=== PATIENT | female | born 1965 | race American Indian/Alaskan Native ===

== ENCOUNTER 2017-01-22 16:17 | Emergency (ER) | payer MEDICAID ==
[~2017-01-22] VITALS: Ht 162.6 cm; Wt 72.3 kg
[~2017-01-22 16:17] MED LIST: CYCL-259 PO; IBUP400T PO; LISI-170 PO
[2017-01-22] MEDS ORDERED: OXYcodone/APAP 5/325MG TABLET PO ONE (17:00)
[2017-01-22] MEDS ORDERED: KETOROLAC 30 MG/1 ML ONE (17:48)
[2017-01-22] MEDS ORDERED: KETOROLAC 30 MG/1 ML IM ONE (18:00)
[2017-01-22 18:18] VITALS: BP 155/91
== END 2017-01-22 18:36 | disposition home or self-care (01) ==
LOC: ED 18:03
DX: S52.515A Nondisplaced fracture of left radial styloid process, initial encounter for closed fracture (principal); W01.0XXA Fall on same level from slipping, tripping and stumbling without subsequent striking against object, initial encounter; Y93.89 Activity, other specified; Y92.89 Other specified places as the place of occurrence of the external cause; Y99.8 Other external cause status
CPT/HCPCS: 29125; 73110; 96372; 99284; J1885

== ENCOUNTER 2017-02-23 06:48 | Emergency (ER) | payer MEDICAID ==
[~2017-02-23] VITALS: Ht 162.6 cm; Wt 69.0 kg
[2017-02-23 06:59] VITALS: BP 206/114
== END 2017-02-23 08:20 | disposition home or self-care (01) ==
LOC: ED 08:14
DX: S62.665D Nondisplaced fracture of distal phalanx of left ring finger, subsequent encounter for fracture with routine healing (principal); S52.92XD Unspecified fracture of left forearm, subsequent encounter for closed fracture with routine healing; I10 Essential (primary) hypertension; Z76.0 Encounter for issue of repeat prescription

== ENCOUNTER 2017-05-20 19:38 | Emergency (ER) | payer MEDICAID ==
[2017-05-20] MEDS ORDERED: LISINOPRIL 20 MG TABLET ONE (19:56)
[2017-05-20] MEDS ORDERED: LISINOPRIL 20 MG TABLET PO ONE (20:00)
[2017-05-20] MEDS ORDERED: PLEASE ENTER HEIGHT AND WEIGHT MC SCH (20:00)
[2017-05-20 21:42] VITALS: BP 155/81
== END 2017-05-20 21:44 | disposition home or self-care (01) ==
LOC: ED 21:38
DX: F10.120 Alcohol abuse with intoxication, uncomplicated (principal); I10 Essential (primary) hypertension; M54.5 Low back pain
CPT/HCPCS: 72110; 72220; 99284

== ENCOUNTER 2017-09-09 13:26 | Emergency (ER) | payer MEDICAID ==
[~2017-09-09] VITALS: Ht 170.2 cm; Wt 70.0 kg
[~2017-09-09 13:26] MED LIST changes: +IBUP-1221 PO; -IBUP400T PO
[2017-09-09] MEDS ORDERED: THIAMINE 100MG TABLET PO ONE (13:30)
[2017-09-09 13:34] VITALS: BP 153/92
[2017-09-09] MEDS ORDERED: THIAMINE 100MG TABLET ONE (13:50)
== END 2017-09-09 13:55 | disposition left against medical advice (07) ==
LOC: ED 13:30
DX: F10.120 Alcohol abuse with intoxication, uncomplicated (principal); I10 Essential (primary) hypertension
CPT/HCPCS: 99283

== ENCOUNTER 2017-10-28 18:42 | Emergency (ER) | payer MEDICAID ==
[~2017-10-28] VITALS: Ht 162.6 cm; Wt 72.0 kg
[2017-10-28 18:44] VITALS: BP 192/98
[2017-10-28] MEDS ORDERED: ACETAMINOPHEN 325 MG TABLET ONE (19:11)
[2017-10-28] MEDS ORDERED: IBUPROFEN 200 MG TABLET ONE (19:11)
[2017-10-28] MEDS ORDERED: ACETAMINOPHEN 325 MG TABLET PO ONE (19:30)
[2017-10-28] MEDS ORDERED: IBUPROFEN 200 MG TABLET PO ONE (19:30)
== END 2017-10-28 20:16 | disposition home or self-care (01) ==
LOC: ED 19:45
DX: K08.89 Other specified disorders of teeth and supporting structures (principal); I10 Essential (primary) hypertension; F17.200 Nicotine dependence, unspecified, uncomplicated
CPT/HCPCS: 99283

== ENCOUNTER 2018-07-12 05:09 | Emergency (ER) | payer MEDICAID ==
[~2018-07-12] VITALS: Ht 162.6 cm; Wt 71.7 kg
[2018-07-12 06:30] VITALS: BP 187/111
== END 2018-07-12 06:32 | disposition home or self-care (01) ==
LOC: ED 06:26
DX: J30.2 Other seasonal allergic rhinitis (principal); I10 Essential (primary) hypertension
CPT/HCPCS: 71045; 93005; 99284

== ENCOUNTER 2018-10-15 17:13 | Emergency (ER) | payer MEDICAID ==
[~2018-10-15] VITALS: Ht 162.6 cm; Wt 66.0 kg
[2018-10-15] MEDS ORDERED: FOLIC ACID 1 MG TABLET PO ONE (17:30)
--- NOTE | 2018-10-15 17:30 | NUR ---
Pt BIB EMS from street for "being to drunk for long-term" per EMS. Pt was found sleeping on sidewalk. Smells of ETOH and when asked how much she drank states "too much". Pt alert to name only. Pt using excessive profanity, intermittently crying, cussing and laughing. BG 88 by EMS
[2018-10-15] MEDS ORDERED: THIAMINE 100MG TABLET PO ONE (18:00)
[2018-10-15] MEDS ORDERED: MAGNESIUM OXIDE 400 MG TABLET ONE (18:15)
--- NOTE | 2018-10-15 19:02 | NUR ---
Report to Andrew DANIELS. Pt remains in bed, NAD.
--- NOTE | 2018-10-15 19:12 | NUR ---
PT BEDSIDE REPORT FROM BARTOLOME RN. THIS RN TO ASSUME CARE OF PT. PT SLEEPING COMFORTABLY ON GURNEY. RR EVEN AND UNLABORED. PT REFUSING MEDICATIONS AT THIS TIME. VSS. CALL LIGHT WITHIN REACH.
[2018-10-15 19:13] VITALS: BP 148/70
--- NOTE | 2018-10-15 20:01 | NUR ---
PT STILL REFUSING MEDICATIONS. PT SLEEPING COMFORTABLY ON GURNEY. PT STOOD STEADILY AT BEDSIDE. MD AWARE. PT TBDC.
--- NOTE | 2018-10-15 20:07 | NUR ---
THIS RN TO D/C PT. ALL MONITORING AND GOWN ON GROUND. PT GONE. PT DID NOT RECEIVE D/C PAPERWORK.
[2018-10-16] MEDS ORDERED: MAGNESIUM OXIDE 400 MG TABLET PO SCH (09:00)
[2018-10-16] MEDS ORDERED: MULTIVITAMIN 1 TABLET PO SCH (09:00)
== END 2018-10-15 20:09 | disposition home or self-care (01) ==
LOC: ED 19:00
DX: F10.220 Alcohol dependence with intoxication, uncomplicated (principal); I10 Essential (primary) hypertension; F17.200 Nicotine dependence, unspecified, uncomplicated
CPT/HCPCS: 99283

== ENCOUNTER 2019-05-05 17:03 | Emergency (ER) | payer MEDICAID ==
[~2019-05-05] VITALS: Ht 162.6 cm; Wt 74.6 kg
[2019-05-05 17:51] VITALS: BP 130/63
== END 2019-05-05 18:27 | disposition home or self-care (01) ==
LOC: ED 18:24
DX: S20.211A Contusion of right front wall of thorax, initial encounter (principal); I10 Essential (primary) hypertension; R51 Headache; Z72.9 Problem related to lifestyle, unspecified; Y04.8XXA Assault by other bodily force, initial encounter; Y93.89 Activity, other specified; Y92.89 Other specified places as the place of occurrence of the external cause; Y99.8 Other external cause status
CPT/HCPCS: 70450; 99284

== ENCOUNTER 2019-06-06 17:14 | Emergency (ER) | payer MEDICAID ==
[~2019-06-06] VITALS: Ht 162.6 cm; Wt 79.0 kg
--- NOTE | 2019-06-06 17:24 | NUR ---
54 Y/O FEMALE BIB AMBULANCE WITH C/O DIZZY. PER REPORT PT WAS AT [facility] [address] AND [facility] IN [place] AND FELT DIZZY. 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 PER PT "I JUST FEEL DIZZY. I HAD PEOPLE AT [facility] CALL FOR ME. IT FEELS LIKE I'M ON A ROLLER COASTER THAT'S GOING TO START. JUST BEFORE YOU HIT THE BIG DROP." PT DENIES N/V/D, TRAUMA, SYNCOPE, CP, SOB. PT PLACED ON CONT PULSE OX,NIBP, RETRIMMER
[2019-06-06 18:15] LABS: BASOPHILS # (AUTO) 0.02 x10^3/uL (0-0.1); BASOPHILS % (AUTO) 1 % (0-1); EOSINOPHILS # (AUTO) 0.26 x10^3/uL (0-0.4); EOSINOPHILS % (AUTO) 7 % (1-7); LYMPHOCYTES # (AUTO) 1.67 x10^3/uL (1-3.4); LYMPHOCYTES % (AUTO) 45 % (22-44); MD NO; MEAN CORPUSCULAR HEMOGLOBIN 30.4 pg (27.0-34.8); MEAN CORPUSCULAR HGB CONC 33.3 g/dL (32.4-35.8); MEAN CORPUSCULAR VOLUME 91.3 fL (80-100); MEAN PLATELET VOLUME 7.6 fL (7.4-10.4); MONOCYTES # (AUTO) 0.28 x10^3/uL (0.2-0.8); MONOCYTES % (AUTO) 8 % (2-9); NEUTROPHILS # (AUTO) 1.45 x10^3/uL (1.8-6.8); NEUTROPHILS % (AUTO) 39 % (42-75); PLATELET COUNT 284 x10^3/uL (130-400); RED BLOOD COUNT 5.02 x10^6/uL (3.82-5.3); RED CELL DISTRIBUTION WIDTH 14.9 % (9.6-15.2)
[2019-06-06 18:24] LABS: ALBUMIN 3.6 g/dL (3.4-5.0); ANION GAP 5 mmol/L (5-15); CHLORIDE 111 mmol/L (98-107); CREATININE 1.09 mg/dL (0.55-1.02)
[2019-06-06 18:30] VITALS: BP 150/83
--- NOTE | 2019-06-06 18:30 | NUR ---
PT RESTING ON GURNEY WATCHING TV. NO C/O PAIN. LAB HAS BEEN BEDSIDE. NO ACUTE DISTRESS NOTED. NO NEEDS REQUESTED AT THIS TIME.
--- NOTE | 2019-06-06 18:31 | NUR ---
PT STATED SHE HAS LISINOPRIL BUT DOESN'T TAKE IT LIKE IT IS PRESCRIBED.
--- NOTE | 2019-06-06 19:21 | NUR ---
BEDSIDE REPORT TO JEREMIAH GIFFORD
== END 2019-06-06 20:41 | disposition home or self-care (01) ==
LOC: ED 20:24
DX: R55 Syncope and collapse (principal); I10 Essential (primary) hypertension; F17.200 Nicotine dependence, unspecified, uncomplicated; Z72.9 Problem related to lifestyle, unspecified
CPT/HCPCS: 36415; 80048; 82040; 85025; 93005; 99284

== ENCOUNTER 2021-05-17 12:29 | Emergency (ER) | payer MEDICAID ==
[~2021-05-17] VITALS: Ht 162.6 cm; Wt 75.1 kg
[~2021-05-17 12:29] MED LIST changes: -CYCL-259 PO; +CYCL10TA2 PO
[2021-05-17 12:32] VITALS: BP 151/83
[2021-05-17] MEDS ORDERED: ASPIRIN 81 MG TABLET CHEW ONE (12:44)
--- NOTE | 2021-05-17 12:44 | NUR ---
XRAY AT BS
[2021-05-17 12:56] LABS: BASOPHILS % (AUTO) 1 % (0-1); EOSINOPHILS % (AUTO) 3 % (1-7); LYMPHOCYTES % (AUTO) 38 % (22-44); MEAN CORPUSCULAR HEMOGLOBIN 30.9 pg (27.0-34.8); MEAN CORPUSCULAR HGB CONC 33.7 g/dL (32.4-35.8); MEAN PLATELET VOLUME 7.5 fL (7.4-10.4); MONOCYTES % (AUTO) 8 % (2-9); NEUTROPHILS % (AUTO) 51 % (42-75); PLATELET COUNT 267 x10^3/uL (130-400); RED BLOOD COUNT 4.84 x10^6/uL (3.82-5.3); RED CELL DISTRIBUTION WIDTH 14.8 % (9.6-15.2)
[2021-05-17] MEDS ORDERED: ASPIRIN 81 MG TABLET CHEW PO ONE (13:00)
[2021-05-17 13:10] LABS: ALANINE AMINOTRANSFERASE 51 U/L (12-78); ALBUMIN 3.7 g/dL (3.4-5.0); ANION GAP 8 mmol/L (5-15); CALCIUM 8.6 mg/dL (8.5-10.1); CHLORIDE 113 mmol/L (98-107); CREATININE 0.78 mg/dL (0.55-1.02)
--- NOTE | 2021-05-17 13:12 | NUR ---
Covering primary nurse for lunch, pt on monitor no st elevation no ectopy, RR equal and unlabored. AIDET provided, NAD>
[2021-05-17 13:15] LABS: ALKALINE PHOSPHATASE 136 U/L (45-117); BILIRUBIN,TOTAL 0.8 mg/dL (0.2-1.0); TOTAL PROTEIN 8.2 g/dL (6.4-8.2); TROPONIN I < 0.015 ng/mL (0.000-0.045)
--- NOTE | 2021-05-17 13:29 | NUR ---
Patient given discharge instructions and they have confirmed that they understand the instructions. Patient ambulatory with steady gait.
== END 2021-05-17 13:33 | disposition home or self-care (01) ==
LOC: ED 13:27
DX: R07.2 Precordial pain (principal); I10 Essential (primary) hypertension
CPT/HCPCS: 36415; 71045; 80053; 84484; 85025; 93005; 99285

== ENCOUNTER 2021-05-20 16:04 | Emergency (ER) | payer MEDICAID ==
[~2021-05-20] VITALS: Ht 162.6 cm; Wt 73.0 kg
[2021-05-20 16:23] VITALS: BP 139/91
[2021-05-20] MEDS ORDERED: LIDOCAINE-MPF 1%, 5ML INFIL ONE (16:30)
[2021-05-20] MEDS ORDERED: DIPH,PERTUSS(ACELL),TET VAC/PF 0.5 ML IM-VACC ONE ×2 (16:30→16:36)
[2021-05-20] MEDS ORDERED: LIDOCAINE-MPF 1%, 5ML ONE (16:34)
--- NOTE | 2021-05-20 17:48 | NUR ---
WOUND CARE PROVIDED.
--- NOTE | 2021-05-20 18:19 | NUR ---
DC INSTUCTIONS REVIEWED
== END 2021-05-20 18:22 | disposition home or self-care (01) ==
LOC: ED 18:00
DX: S81.851A Open bite, right lower leg, initial encounter (principal); Z72.9 Problem related to lifestyle, unspecified; F10.10 Alcohol abuse, uncomplicated; I10 Essential (primary) hypertension; R00.0 Tachycardia, unspecified; Y90.0 Blood alcohol level of less than 20 mg/100 ml; W54.0XXA Bitten by dog, initial encounter; Y93.89 Activity, other specified; Y92.410 Unspecified street and highway as the place of occurrence of the external cause; Y99.8 Other external cause status
CPT/HCPCS: 90471; 90715; 99284

== ENCOUNTER 2021-05-26 02:45 | Emergency (ER) | payer MEDICAID ==
[~2021-05-26] VITALS: Ht 162.6 cm; Wt 75.2 kg
[2021-05-26] MEDS ORDERED: LIDOCAINE 1%-EPI 1:100K, 20ML ONE (03:13)
[2021-05-26] MEDS ORDERED: AMOXICILLIN/CLAV 875-125MG TABLET ONE (03:16)
[2021-05-26] MEDS ORDERED: LIDOCAINE 1%-EPI 1:100K, 20ML SQ ONE (03:30)
[2021-05-26 03:54] VITALS: BP 137/64
--- NOTE | 2021-05-26 03:54 | NUR ---
PATIENT CLEARED FOR DISCHARGE. PATIENT VERBALIZED UNDERSTANDING OF SELF CARE AND FOLLOW UP CARE AT HOME. NO NOTED ADDITIONAL NEEDS. GIVEN SUPPLIES TO IMPROVE PATIENT OUTPATIENT SELF CARE. AMBULATORY TO DISCHARGE WITH BELONGINGS WITHOUT COMPLICATIONS.
== END 2021-05-26 03:56 | disposition home or self-care (01) ==
LOC: ED 02:54
DX: S71.151A Open bite, right thigh, initial encounter (principal); L03.115 Cellulitis of right lower limb; I10 Essential (primary) hypertension; F17.210 Nicotine dependence, cigarettes, uncomplicated; Z86.73 Personal history of transient ischemic attack (TIA), and cerebral infarction without residual deficits; W54.0XXA Bitten by dog, initial encounter; Y93.89 Activity, other specified; Y92.89 Other specified places as the place of occurrence of the external cause; Y99.8 Other external cause status
CPT/HCPCS: 10060; 99283

== ENCOUNTER 2021-05-28 15:47 | Inpatient (IN) | payer MEDICAID ==
[~2021-05-28] VITALS: Ht 162.6 cm; Wt 79.8 kg
--- NOTE | 2021-05-28 17:44 | NUR ---
mini lab operator note: Pt to room from lobby, ambulatory with steady gait.
--- NOTE | 2021-05-28 18:54 | NUR ---
Report from Clifton DANIELS
[2021-05-28] MEDS ORDERED: VANCOMYCIN PER PHARMACY MC PRN ×2 (19:00→21:00)
[2021-05-28] MEDS ORDERED: SODIUM CHLORIDE FLUSH 10ML SYR IVF ONE (19:00)
[2021-05-28] MEDS ORDERED: CLINDAMYCIN PMX 900MG/50ML 50 ML IV ONE (19:00)
[2021-05-28] MEDS ORDERED: CHLORDIAZEPOXIDE 25 MG CAPSULE PO PRN (19:00)
[2021-05-28] MEDS ORDERED: PIPERACILLIN/TAZO 3.375 GM in DEXTROSE 5% 50 ML IVPB ONE (19:00)
[2021-05-28] MEDS ORDERED: SODIUM CHLORIDE 0.9% 1,000ML IVBOLUS ONE (19:00)
[2021-05-28 19:13] LABS: BASOPHILS % (AUTO) 0 % (0-1); EOSINOPHILS % (AUTO) 1 % (1-7); LYMPHOCYTES % (AUTO) 21 % (22-44); MEAN CORPUSCULAR HEMOGLOBIN 31.4 pg (27.0-34.8); MEAN CORPUSCULAR HGB CONC 33.7 g/dL (32.4-35.8); MEAN PLATELET VOLUME 7.4 fL (7.4-10.4); MONOCYTES % (AUTO) 9 % (2-9); NEUTROPHILS % (AUTO) 68 % (42-75); PLATELET COUNT 270 x10^3/uL (130-400); RED BLOOD COUNT 4.65 x10^6/uL (3.82-5.3); RED CELL DISTRIBUTION WIDTH 14.7 % (9.6-15.2)
[2021-05-28 19:20] LABS: ALANINE AMINOTRANSFERASE 47 U/L (12-78); ALBUMIN 3.3 g/dL (3.4-5.0); ANION GAP 7 mmol/L (5-15); CALCIUM 9.1 mg/dL (8.5-10.1); CHLORIDE 103 mmol/L (98-107); CREATININE 0.66 mg/dL (0.55-1.02)
[2021-05-28 19:22] LABS: ALKALINE PHOSPHATASE 112 U/L (45-117); BILIRUBIN,TOTAL 1.9 mg/dL (0.2-1.0); TOTAL PROTEIN 8.1 g/dL (6.4-8.2)
[2021-05-28] MEDS ORDERED: VANCOMYCIN 1,900 MG in SODIUM CHLORIDE 0.9% 250 ML IV ONE (19:30)
--- NOTE | 2021-05-28 20:27 | NUR ---
Report to Ina DANIELS
[2021-05-28] MEDS ORDERED: KETOROLAC 30 MG/1 ML IV PRN (20:30)
[2021-05-28] MEDS ORDERED: LORazepam 0.5MG TABLET PO PRN (20:30)
[2021-05-28] MEDS ORDERED: MELATONIN 5 MG TABLET PO PRN (20:30)
[2021-05-28] MEDS ORDERED: POLYETHYLENE GLYCOL 17 GM PACKET PO PRN (20:30)
[2021-05-28] MEDS ORDERED: ACETAMINOPHEN 325 MG TABLET PO PRN (20:30)
[2021-05-28] MEDS ORDERED: MORPHINE SULFATE 4 MG/ML, 1ML IVPush ONE (20:30)
[2021-05-28] MEDS ORDERED: LORazepam 2 MG/ML, 1ML IV PRN ×2 (20:30)
[2021-05-28] MEDS ORDERED: LORazepam 1MG TABLET PO PRN (20:30)
[2021-05-28] MEDS ORDERED: LABETALOL 5MG/ML, 20ML IVPush PRN (20:30)
[2021-05-28] MEDS ORDERED: ONDANSETRON 2MG/ML, 2ML IVPush PRN (20:30)
[2021-05-28] MEDS ORDERED: MORPHINE SULFATE 4 MG/ML, 1ML ONE (20:33)
[2021-05-28] MEDS ORDERED: PHARMACY MAY ADJ FOR RENAL FX MC PRN (21:00)
[2021-05-28 21:07] VITALS: BP 195/116
[2021-05-28] MEDS ORDERED: PHARMACOKINETIC MONITORING MC PRN (21:30)
[2021-05-28] MEDS ORDERED: PHARMACOKINETIC CONSULTATION MC ONE (21:30)
[2021-05-28] MEDS ORDERED: AMOX1TAB64 PO (21:41)
[2021-05-28] MEDS: morphine SULFATE 10 MG/ML, 1ML IVPush PRN (21:54)
[2021-05-28] MEDS: ENOXAPARIN 40 MG/0.4 ML SQ SCH (21:54)
[2021-05-28 23:19] VITALS: BP 155/88
[2021-05-29] MEDS: PIPERACILLIN/TAZO 4.5 GM in DEXTROSE 5% 100 ML IVPB SCH ×2 (01:37→06:32)
[2021-05-29 05:51] LABS: BASOPHILS % (AUTO) 0 % (0-1); EOSINOPHILS % (AUTO) 2 % (1-7); LYMPHOCYTES % (AUTO) 18 % (22-44); MEAN CORPUSCULAR HGB CONC 34.3 g/dL (32.4-35.8); MONOCYTES % (AUTO) 9 % (2-9); NEUTROPHILS % (AUTO) 70 % (42-75); PLATELET COUNT 264 x10^3/uL (130-400); RED BLOOD COUNT 4.47 x10^6/uL (3.82-5.3); RED CELL DISTRIBUTION WIDTH 14.6 % (9.6-15.2)
[2021-05-29 06:21] LABS: CHLORIDE 104 mmol/L (98-107)
[2021-05-29 06:25] LABS: ANION GAP 6 mmol/L (5-15); CALCIUM 9.2 mg/dL (8.5-10.1); CREATININE 1.27 mg/dL (0.55-1.02)
[2021-05-29 07:20] VITALS: BP 191/98
[2021-05-29] MEDS: SODIUM CHLORIDE 0.9% 1,000 ML IV SCH ×3 (07:30→20:12)
[2021-05-29] MEDS: AMPICILLIN/SULBACTAM 3 GM in SODIUM CHLORIDE 0.9% 100 ML IV SCH ×3 (07:55→23:59)
[2021-05-29] MEDS: morphine SULFATE 10 MG/ML, 1ML IVPush PRN ×2 (07:56→20:22)
[2021-05-29] MEDS: MULTIVITAMINS/MINERALS TABLET PO SCH (07:56)
[2021-05-29] MEDS ORDERED: VANCOMYCIN 1,500 MG in SODIUM CHLORIDE 0.9% 250 ML IV SCH (08:00)
[2021-05-29 08:55] LABS: HCT (SEDRATE) 44.6 % (34.6-47.8)
[2021-05-29] MEDS: AMLODIPINE 10 MG TAB PO SCH (10:50)
[2021-05-29 11:45] LABS: AMPHETAMINE SCREEN, URINE Positive (Negative); BARBITURATE SCREEN, URINE Negative (Negative); BENZODIAZEPINE SCREEN, URINE Negative (Negative); CANNABINOID SCREEN, URINE Negative (Negative); COCAINE SCREEN, URINE Negative (Negative); METHADONE SCREEN, URINE Negative (Negative); OPIATE SCREEN, URINE Positive (Negative)
[2021-05-29 14:36] VITALS: BP 145/90
[2021-05-29 19:24] VITALS: BP 171/91
[2021-05-29] MEDS: ENOXAPARIN 40 MG/0.4 ML SQ SCH (20:12)
[2021-05-30] VITALS (8 sets, daily range): BP systolic 137–180; BP diastolic 76–104
[2021-05-30] MEDS: hydrALAzine 20 MG/ML, 1ML IV PRN (01:48)
[2021-05-30] MEDS: AMLODIPINE 10 MG TAB PO SCH (08:47)
[2021-05-30] MEDS: SODIUM CHLORIDE 0.9% 1,000 ML IV SCH ×2 (08:47→17:56)
[2021-05-30] MEDS: AMPICILLIN/SULBACTAM 3 GM in SODIUM CHLORIDE 0.9% 100 ML IV SCH ×3 (08:47→23:39)
[2021-05-30] MEDS: MULTIVITAMINS/MINERALS TABLET PO SCH (08:47)
[2021-05-30 10:15] LABS: BASOPHILS % (AUTO) 0 % (0-1); EOSINOPHILS % (AUTO) 1 % (1-7); LYMPHOCYTES % (AUTO) 14 % (22-44); MEAN CORPUSCULAR HEMOGLOBIN 31.3 pg (27.0-34.8); MEAN CORPUSCULAR HGB CONC 33.8 g/dL (32.4-35.8); MEAN PLATELET VOLUME 7.4 fL (7.4-10.4); MONOCYTES % (AUTO) 13 % (2-9); NEUTROPHILS % (AUTO) 72 % (42-75); PLATELET COUNT 259 x10^3/uL (130-400); RED BLOOD COUNT 4.59 x10^6/uL (3.82-5.3); RED CELL DISTRIBUTION WIDTH 14.4 % (9.6-15.2)
[2021-05-30 10:29] LABS: ANION GAP 9 mmol/L (5-15); CALCIUM 8.7 mg/dL (8.5-10.1); CHLORIDE 107 mmol/L (98-107); CREATININE 2.57 mg/dL (0.55-1.02)
[2021-05-30] MEDS: morphine SULFATE 10 MG/ML, 1ML IVPush PRN ×2 (13:44→19:31)
[2021-05-30] MEDS ORDERED: GADOTERATE 10 MMOL/20ML SYR ONE (17:07)
[2021-05-30] MEDS: ENOXAPARIN 30 MG/0.3 ML SQ SCH (17:55)
[2021-05-30] MEDS: METOPROLOL TARTRATE 25 MG TAB PO SCH (17:55)
[2021-05-31 00:56] VITALS: BP 163/86
[2021-05-31 01:11] VITALS: BP 159/91
[2021-05-31] MEDS: SODIUM CHLORIDE 0.9% 1,000 ML IV SCH ×3 (02:01→17:50)
[2021-05-31 05:52] LABS: BASOPHILS % (AUTO) 0 % (0-1); EOSINOPHILS % (AUTO) 2 % (1-7); LYMPHOCYTES % (AUTO) 18 % (22-44); MEAN CORPUSCULAR HEMOGLOBIN 31.3 pg (27.0-34.8); MEAN PLATELET VOLUME 7.6 fL (7.4-10.4); MONOCYTES % (AUTO) 11 % (2-9); NEUTROPHILS % (AUTO) 68 % (42-75); PLATELET COUNT 284 x10^3/uL (130-400); RED BLOOD COUNT 4.45 x10^6/uL (3.82-5.3); RED CELL DISTRIBUTION WIDTH 13.9 % (9.6-15.2)
[2021-05-31 05:58] LABS: ANION GAP 11 mmol/L (5-15); CALCIUM 8.7 mg/dL (8.5-10.1); CHLORIDE 106 mmol/L (98-107); CREATININE 2.14 mg/dL (0.55-1.02)
[2021-05-31 06:01] LABS: CREATINE KINASE, TOTAL 34 U/L (26-192)
[2021-05-31] MEDS: METOPROLOL TARTRATE 25 MG TAB PO SCH ×2 (06:08→17:49)
[2021-05-31 06:15] LABS: VANCOMYCIN,RANDOM 17.8 mcg/mL
[2021-05-31 07:27] VITALS: BP 157/94
[2021-05-31] MEDS: AMPICILLIN/SULBACTAM 3 GM in SODIUM CHLORIDE 0.9% 100 ML IV SCH ×3 (08:06→23:30)
[2021-05-31] MEDS: AMLODIPINE 10 MG TAB PO SCH (09:40)
[2021-05-31] MEDS: MULTIVITAMINS/MINERALS TABLET PO SCH (09:40)
[2021-05-31] MEDS ORDERED: DAPTOMYCIN 480 MG in SODIUM CHLORIDE 0.9% 100 ML IVPB SCH (11:00)
[2021-05-31 13:15] VITALS: BP 146/83
[2021-05-31] MEDS: ENOXAPARIN 30 MG/0.3 ML SQ SCH (17:50)
[2021-05-31 18:45] VITALS: BP 159/89
[2021-06-01 00:51] VITALS: BP 147/80
[2021-06-01] MEDS: SODIUM CHLORIDE 0.9% 1,000 ML IV SCH ×2 (05:08→13:14)
[2021-06-01] MEDS: METOPROLOL TARTRATE 25 MG TAB PO SCH ×2 (05:09→17:43)
[2021-06-01] MEDS: AMPICILLIN/SULBACTAM 3 GM in SODIUM CHLORIDE 0.9% 100 ML IV SCH ×3 (07:59→23:46)
[2021-06-01] MEDS: AMLODIPINE 10 MG TAB PO SCH (09:25)
[2021-06-01] MEDS: MULTIVITAMINS/MINERALS TABLET PO SCH (09:25)
[2021-06-01 09:46] VITALS: BP 149/92
[2021-06-01] MEDS: DAPTOMYCIN IVPB SCH (11:58)
[2021-06-01] MEDS: SODIUM CHLORIDE 0.9% IVPB SCH (11:58)
[2021-06-01 14:27] VITALS: BP 154/87
[2021-06-01] MEDS: ENOXAPARIN 30 MG/0.3 ML SQ SCH (17:44)
[2021-06-01 19:43] VITALS: BP 154/95
[2021-06-02 00:48] VITALS: BP 175/104
[2021-06-02] MEDS: hydrALAzine 20 MG/ML, 1ML IV PRN (00:53)
[2021-06-02] MEDS: SODIUM CHLORIDE 0.9% 1,000 ML IV SCH (00:53)
[2021-06-02 01:54] VITALS: BP 174/95
[2021-06-02] MEDS ORDERED: LABETALOL 5MG/ML, 20ML IVPush PRN (02:30)
[2021-06-02] MEDS ORDERED: LABETALOL 5MG/ML, 20ML IVPush ONE (02:30)
[2021-06-02 03:36] VITALS: BP 165/98
[2021-06-02] MEDS: METOPROLOL TARTRATE 25 MG TAB PO SCH ×3 (05:02→16:10)
[2021-06-02 07:16] VITALS: BP 165/96
[2021-06-02] MEDS: MULTIVITAMINS/MINERALS TABLET PO SCH (09:27)
[2021-06-02] MEDS: AMPICILLIN/SULBACTAM 3 GM in SODIUM CHLORIDE 0.9% 100 ML IV SCH ×2 (09:27→16:06)
[2021-06-02] MEDS: AMLODIPINE 10 MG TAB PO SCH (09:27)
[2021-06-02] MEDS ORDERED: METOPROLOL TARTRATE 25 MG TAB PO ONE (09:30)
[2021-06-02] MEDS ORDERED: LOSARTAN 25MG TABLET PO SCH (09:30)
[2021-06-02 10:00] LABS: BASOPHILS % (AUTO) 1 % (0-1); EOSINOPHILS % (AUTO) 3 % (1-7); LYMPHOCYTES % (AUTO) 22 % (22-44); MEAN CORPUSCULAR HEMOGLOBIN 30.7 pg (27.0-34.8); MEAN CORPUSCULAR HGB CONC 33.2 g/dL (32.4-35.8); MEAN PLATELET VOLUME 7.3 fL (7.4-10.4); MONOCYTES % (AUTO) 9 % (2-9); NEUTROPHILS % (AUTO) 66 % (42-75); PLATELET COUNT 342 x10^3/uL (130-400); RED BLOOD COUNT 4.93 x10^6/uL (3.82-5.3); RED CELL DISTRIBUTION WIDTH 13.9 % (9.6-15.2)
[2021-06-02 10:07] LABS: ALANINE AMINOTRANSFERASE 32 U/L (12-78); ALBUMIN 3.3 g/dL (3.4-5.0); ANION GAP 8 mmol/L (5-15); CALCIUM 9.7 mg/dL (8.5-10.1); CHLORIDE 108 mmol/L (98-107); CREATININE 1.55 mg/dL (0.55-1.02)
[2021-06-02 10:10] LABS: ALKALINE PHOSPHATASE 103 U/L (45-117); TOTAL PROTEIN 8.2 g/dL (6.4-8.2)
[2021-06-02] MEDS: DAPTOMYCIN IVPB SCH (11:52)
[2021-06-02] MEDS: SODIUM CHLORIDE 0.9% IVPB SCH (11:52)
[2021-06-02] MEDS ORDERED: POTASSIUM CHLORIDE 20 MEQ TAB.ER.PRT PO ONE (13:00)
[2021-06-02 13:29] VITALS: BP 162/103
[2021-06-02] MEDS: ENOXAPARIN 40 MG/0.4 ML SQ SCH (16:06)
[2021-06-02 20:08] VITALS: BP 160/91
[2021-06-03] MEDS: AMPICILLIN/SULBACTAM 3 GM in SODIUM CHLORIDE 0.9% 100 ML IV SCH ×3 (01:22→18:20)
[2021-06-03 01:27] VITALS: BP 145/92
[2021-06-03 05:43] VITALS: BP 166/96
[2021-06-03] MEDS: METOPROLOL TARTRATE 25 MG TAB PO SCH ×2 (05:45→18:19)
[2021-06-03 07:07] VITALS: BP 168/95
[2021-06-03] MEDS: LOSARTAN 50MG TABLET PO SCH ×2 (09:00→10:09)
[2021-06-03] MEDS: morphine SULFATE 10 MG/ML, 1ML IVPush PRN (10:08)
[2021-06-03] MEDS: MULTIVITAMINS/MINERALS TABLET PO SCH (10:08)
[2021-06-03] MEDS: AMLODIPINE 10 MG TAB PO SCH (10:09)
[2021-06-03] MEDS: SODIUM CHLORIDE 0.9% IVPB SCH (11:48)
[2021-06-03] MEDS: DAPTOMYCIN IVPB SCH (11:48)
[2021-06-03 12:13] VITALS: BP 162/93
[2021-06-03 13:47] LABS: ANION GAP 7 mmol/L (5-15); CALCIUM 9.1 mg/dL (8.5-10.1); CHLORIDE 110 mmol/L (98-107); CREATININE 1.41 mg/dL (0.55-1.02)
[2021-06-03] MEDS: ENOXAPARIN 40 MG/0.4 ML SQ SCH (18:19)
[2021-06-03 19:27] VITALS: BP 142/76
[2021-06-04] MEDS: AMPICILLIN/SULBACTAM 3 GM in SODIUM CHLORIDE 0.9% 100 ML IV SCH ×3 (01:44→16:11)
[2021-06-04 01:49] VITALS: BP 163/93
[2021-06-04] MEDS: METOPROLOL TARTRATE 25 MG TAB PO SCH ×2 (06:44→18:39)
[2021-06-04] MEDS: LOSARTAN 50MG TABLET PO SCH (09:29)
[2021-06-04] MEDS: AMLODIPINE 10 MG TAB PO SCH (09:29)
[2021-06-04] MEDS: MULTIVITAMINS/MINERALS TABLET PO SCH (09:29)
[2021-06-04 09:36] VITALS: BP 145/87
[2021-06-04] MEDS: DAPTOMYCIN IVPB SCH (11:27)
[2021-06-04] MEDS: SODIUM CHLORIDE 0.9% IVPB SCH (11:27)
[2021-06-04 14:47] VITALS: BP 126/78
[2021-06-04] MEDS: ENOXAPARIN 40 MG/0.4 ML SQ SCH (16:11)
[2021-06-04 20:55] VITALS: BP 135/92
[2021-06-05 01:15] VITALS: BP 131/92
[2021-06-05] MEDS: AMPICILLIN/SULBACTAM 3 GM in SODIUM CHLORIDE 0.9% 100 ML IV SCH ×4 (02:01→18:00)
[2021-06-05] MEDS: METOPROLOL TARTRATE 25 MG TAB PO SCH ×2 (06:25→17:18)
[2021-06-05 06:57] VITALS: BP 148/79
[2021-06-05] MEDS: AMLODIPINE 10 MG TAB PO SCH (08:57)
[2021-06-05] MEDS: LOSARTAN 50MG TABLET PO SCH (08:58)
[2021-06-05] MEDS: MULTIVITAMINS/MINERALS TABLET PO SCH (08:58)
[2021-06-05 12:31] VITALS: BP 154/88
[2021-06-05] MEDS: ENOXAPARIN 40 MG/0.4 ML SQ SCH (17:18)
[2021-06-05 20:20] VITALS: BP 158/83
[2021-06-06 01:51] VITALS: BP 123/77
[2021-06-06] MEDS: AMPICILLIN/SULBACTAM 3 GM in SODIUM CHLORIDE 0.9% 100 ML IV SCH ×3 (01:51→17:29)
[2021-06-06 05:34] VITALS: BP 128/79
[2021-06-06] MEDS: METOPROLOL TARTRATE 25 MG TAB PO SCH ×2 (05:36→17:30)
[2021-06-06 08:28] VITALS: BP 130/85
[2021-06-06] MEDS: LOSARTAN 50MG TABLET PO SCH (08:38)
[2021-06-06] MEDS: MULTIVITAMINS/MINERALS TABLET PO SCH (08:38)
[2021-06-06] MEDS: AMLODIPINE 10 MG TAB PO SCH (08:38)
[2021-06-06 13:48] VITALS: BP 108/64
[2021-06-06] MEDS: ENOXAPARIN 40 MG/0.4 ML SQ SCH (17:31)
[2021-06-06 18:31] VITALS: BP 139/86
[2021-06-07 01:10] VITALS: BP 142/82
[2021-06-07] MEDS: AMPICILLIN/SULBACTAM 3 GM in SODIUM CHLORIDE 0.9% 100 ML IV SCH ×2 (02:15→08:58)
[2021-06-07] MEDS: METOPROLOL TARTRATE 25 MG TAB PO SCH ×2 (05:53→17:44)
[2021-06-07 06:52] LABS: BASOPHILS % (AUTO) 1 % (0-1); EOSINOPHILS % (AUTO) 4 % (1-7); LYMPHOCYTES % (AUTO) 28 % (22-44); MEAN CORPUSCULAR HEMOGLOBIN 30.7 pg (27.0-34.8); MEAN CORPUSCULAR HGB CONC 33.3 g/dL (32.4-35.8); MEAN PLATELET VOLUME 7.2 fL (7.4-10.4); MONOCYTES % (AUTO) 10 % (2-9); NEUTROPHILS % (AUTO) 57 % (42-75); PLATELET COUNT 480 x10^3/uL (130-400); RED BLOOD COUNT 4.69 x10^6/uL (3.82-5.3); RED CELL DISTRIBUTION WIDTH 14.1 % (9.6-15.2)
[2021-06-07 06:56] LABS: ALBUMIN 3.3 g/dL (3.4-5.0); ANION GAP 7 mmol/L (5-15); CALCIUM 8.7 mg/dL (8.5-10.1); CHLORIDE 109 mmol/L (98-107)
[2021-06-07 06:59] LABS: ALANINE AMINOTRANSFERASE 60 U/L (12-78); ALKALINE PHOSPHATASE 100 U/L (45-117); BILIRUBIN,TOTAL 0.5 mg/dL (0.2-1.0); C-REACTIVE PROTEIN, QUANT 0.29 mg/dL (0.02-0.49); CREATININE 1.21 mg/dL (0.55-1.02); TOTAL PROTEIN 8.1 g/dL (6.4-8.2)
[2021-06-07 07:11] VITALS: BP 145/87
[2021-06-07 08:31] LABS: HCT (SEDRATE) 43.4 % (34.6-47.8)
[2021-06-07] MEDS: LOSARTAN 50MG TABLET PO SCH (08:57)
[2021-06-07] MEDS: AMLODIPINE 10 MG TAB PO SCH (08:57)
[2021-06-07] MEDS: MULTIVITAMINS/MINERALS TABLET PO SCH (08:57)
[2021-06-07] MEDS ORDERED: LIDOCAINE 4% TOPICAL SOLUTION 50 ML TP ONE ×2 (12:00)
[2021-06-07] MEDS: AMOXICILLIN/CLAV 500-125MG TABLET PO SCH ×2 (13:10→20:52)
[2021-06-07] MEDS: morphine SULFATE 10 MG/ML, 1ML IVPush PRN (13:15)
[2021-06-07 13:44] VITALS: BP 125/76
[2021-06-07] MEDS: ENOXAPARIN 40 MG/0.4 ML SQ SCH (17:44)
[2021-06-07 20:00] VITALS: BP 161/94
[2021-06-08 01:59] VITALS: BP 138/77
[2021-06-08] MEDS: AMOXICILLIN/CLAV 500-125MG TABLET PO SCH (04:46)
[2021-06-08] MEDS: METOPROLOL TARTRATE 25 MG TAB PO SCH (04:46)
[2021-06-08 06:56] VITALS: BP 135/87
[2021-06-08] MEDS: AMLODIPINE 10 MG TAB PO SCH (10:06)
[2021-06-08] MEDS: LOSARTAN 50MG TABLET PO SCH (10:07)
[2021-06-08] MEDS: MULTIVITAMINS/MINERALS TABLET PO SCH (10:07)
[2021-06-08] MEDS ORDERED: AMOX1TAB64 PO (12:49)
[2021-06-08 13:44] VITALS: BP 135/85
[2021-06-08] MEDS ORDERED: AMOXICILLIN/CLAV 875-125MG TABLET PO SCH (21:00)
== END 2021-06-08 16:34 | disposition home or self-care (01) | DRG 383 ==
LOC: ED 16:00 → EDIP 21:06 → 3N 21:09
PROVIDERS: ADMIT Internal Medicine; ATTEND Internal Medicine
PROC: 0HDHXZZ Extraction of Right Upper Leg Skin, External Approach (ICD-10-PCS; principal; 2021-06-07)
DX: L02.415 Cutaneous abscess of right lower limb (principal); N17.9 Acute kidney failure, unspecified; A52.8 Late syphilis, latent; B18.2 Chronic viral hepatitis C; F15.10 Other stimulant abuse, uncomplicated; I10 Essential (primary) hypertension; F17.210 Nicotine dependence, cigarettes, uncomplicated; F10.139 Alcohol abuse with withdrawal, unspecified; L03.115 Cellulitis of right lower limb; F19.10 Other psychoactive substance abuse, uncomplicated; Z59.0 Homelessness; W54.0XXA Bitten by dog, initial encounter; Z86.73 Personal history of transient ischemic attack (TIA), and cerebral infarction without residual deficits; Z91.14 Patient's other noncompliance with medication regimen
CPT/HCPCS: 36415; 80048; 80053; 80074; 80202; 80307; 82550; 83735; 85025; 85651; 86140; 86592; 86780; 87040; 87070; 87077; 87186; 87205; 87521; 87522; 87806; 96365; 99285; G0378; J0295; J0878; J1650; J2543; J3370; A9575; G0475; J0360; J2270; J7030; J7050

== ENCOUNTER 2021-06-21 08:19 | Outpatient (CLI) | payer MEDICAID ==
[~2021-06-21 08:19] MED LIST changes: +AMOX1TAB64 PO
== END 2021-06-21 23:59 | disposition home or self-care (01) ==
LOC: WOUND 08:19
PROVIDERS: ATTEND Surgery
DX: S71.151A Open bite, right thigh, initial encounter (principal); I10 Essential (primary) hypertension; F17.210 Nicotine dependence, cigarettes, uncomplicated; F15.10 Other stimulant abuse, uncomplicated; F10.139 Alcohol abuse with withdrawal, unspecified; F19.10 Other psychoactive substance abuse, uncomplicated; Z86.73 Personal history of transient ischemic attack (TIA), and cerebral infarction without residual deficits; Z86.19 Personal history of other infectious and parasitic diseases; W54.0XXA Bitten by dog, initial encounter; Y93.89 Activity, other specified; Y92.89 Other specified places as the place of occurrence of the external cause; Y99.8 Other external cause status
CPT/HCPCS: 11042; 99214

== ENCOUNTER 2021-06-28 09:25 | Outpatient (CLI) | payer MEDICAID | END 2021-06-28 23:59 | disposition home or self-care (01) | LOC: WOUND 09:25 | PROVIDERS: ATTEND Internal Medicine | DX: S71.101D Unspecified open wound, right thigh, subsequent encounter (principal); I10 Essential (primary) hypertension; F17.210 Nicotine dependence, cigarettes, uncomplicated; F15.10 Other stimulant abuse, uncomplicated; F10.139 Alcohol abuse with withdrawal, unspecified; F19.10 Other psychoactive substance abuse, uncomplicated; Z86.73 Personal history of transient ischemic attack (TIA), and cerebral infarction without residual deficits; Z86.19 Personal history of other infectious and parasitic diseases; X58.XXXD Exposure to other specified factors, subsequent encounter | CPT/HCPCS: 97597 ==

== ENCOUNTER → 2021-07-05 | Outpatient (CLI) | payer MEDICAID | END | disposition home or self-care (01) | LOC: WOUND 08:54 | PROVIDERS: ATTEND Internal Medicine | DX: S71.101D Unspecified open wound, right thigh, subsequent encounter (principal); I10 Essential (primary) hypertension; F17.210 Nicotine dependence, cigarettes, uncomplicated; F15.10 Other stimulant abuse, uncomplicated; F10.139 Alcohol abuse with withdrawal, unspecified; F19.10 Other psychoactive substance abuse, uncomplicated; Z86.73 Personal history of transient ischemic attack (TIA), and cerebral infarction without residual deficits; Z86.19 Personal history of other infectious and parasitic diseases; W54.0XXD Bitten by dog, subsequent encounter | CPT/HCPCS: 97597 ==